=== PATIENT | female | born 1975 | race Caucasian/White ===

== ENCOUNTER 2024-07-09 06:12 | Inpatient (IN) | payer BC ==
[2024-07-07 09:34] LABS: COLOR,URINE YELLOW (YELLOW)
[2024-07-07 09:35] LABS: BILIRUBIN,URINE NEGATIVE (NEGATIVE); CLARITY,URINE CLOUDY (CLEAR); GLUCOSE, URINE NEGATIVE (NEGATIVE); KETONES,URINE NEGATIVE (NEGATIVE); LEUKOCYTE ESTERASE ,URINE NEGATIVE (NEGATIVE); NITRITE,URINE NEGATIVE (NEGATIVE); PH,URINE 6 (5 - 7); PROTEIN,URINE DIPSTICK NEGATIVE (NEGATIVE); URINE UROBILINOGEN 0.2 mg/dL (0.2 - 1)
[2024-07-07 09:55] LABS: BASOPHILS # (AUTO) 0.1 (0.0-0.1); EOSINOPHILS # (AUTO) 0.2 (0.0-0.4); EOSINOPHILS % 3.3 % (0.0-6.0); HEMATOCRIT 42.4 % (34.2-44.1); HEMOGLOBIN 13.5 g/dL (12.0-16.0); LYMPHOCYTES # (AUTO) 2.7 (1.0-3.2); LYMPHOCYTES % 39.3 % (18.0-39.1); MEAN CORPUSCULAR HEMOGLOBIN 30.1 pg (28-32); MEAN CORPUSCULAR HGB CONC 31.8 g/dL (31-35); MEAN CORPUSCULAR VOLUME 94.4 fL (81-99); MONOCYTES # (AUTO) 0.6 (0.2-0.8); MONOCYTES % 9.3 % (4.4-11.3); NEUTROPHILS # (AUTO) 3.2 (2.1-6.9); NEUTROPHILS % 46.8 % (38.7-80.0); PLATELET COUNT 254 x10e3/uL (140-360); RED BLOOD COUNT 4.49 x10e6/uL (3.6-5.1); RED CELL DISTRIBUTION WIDTH 13.2 % (11.7-14.4)
[~2024-07-09] VITALS: Ht 167.6 cm; Wt 70.3 kg
[~2024-07-09 06:12] MED LIST: IRON GUMMIES PO
[2024-07-09] MEDS: LACTATED RINGER'S 1,000 ML ONE (06:19)
[2024-07-09 08:05] LABS: HIV 1&2 AB SCREEN NON-REACTIVE (NONREACTIVE)
[2024-07-09] MEDS ORDERED: NALOXONE HCL INJ 0.4 MG/ML AMP IV PRN (10:45)
[2024-07-09] MEDS ORDERED: DIPHENHYDRAMINE HCL INJ 50 MG/ML VIAL IM PRN (10:45)
[2024-07-09] MEDS ORDERED: ZOLPIDEM TARTRATE 5 MG TAB PO PRN (10:45)
[2024-07-09] MEDS ORDERED: DIPHENHYDRAMINE HCL 25 MG CAP PO PRN (10:45)
[2024-07-09] MEDS ORDERED: DOCUSATE SODIUM 100 MG CAP PO PRN (10:45)
[2024-07-09] MEDS ORDERED: BISACODYL 5 MG TAB EC PO PRN (10:45)
[2024-07-09] MEDS: MEPERIDINE HCL INJ 25 MG/ML VIAL ONE (10:51)
[2024-07-09] MEDS: HYDROMORPHONE 0.2MG/ML-SOD CHL 30ML PCA SYRINGE IV PRN (11:04)
[2024-07-09 11:30] VITALS: BP 132/80; PULSE 67; RESP 18; TEMP 97.2; O2SAT 98
[2024-07-09] MEDS ORDERED: PHENYLEPHRINE HCL 1% 10 MG/ML VIAL ONE (12:11)
[2024-07-09] MEDS ORDERED: PROPOFOL IV EMULSION 10 MG/ML 20 ML VIAL ONE (12:14)
[2024-07-09] MEDS ORDERED: SUGAMMADEX SODIUM 200 MG/2 ML VIAL IV ONE (12:14)
[2024-07-09] MEDS ORDERED: SEVOFLURANE INHAL SOLN 250 ML PEN BTL ONE (12:14)
[2024-07-09] MEDS ORDERED: FAMOTIDINE 20 MG/2 ML VIAL IV ONE (12:14)
[2024-07-09] MEDS ORDERED: DEXAMETHASONE SOD PHOS INJ 4 MG/ML SDV ONE (12:14)
[2024-07-09] MEDS ORDERED: ACETAMINOPHEN 1000 MG/100 ML IV ONE (12:14)
[2024-07-09] MEDS ORDERED: LIDOCAINE HCL 2% LOCAL INJ 5 ML SDV VIAL INJ ONE (12:14)
[2024-07-09] MEDS ORDERED: ONDANSETRON HCL INJ 2MG/ML 2ML 2 MG/ML VIAL ONE (12:14)
[2024-07-09] MEDS: DEXTROSE 5%/LACTATED RINGERS 1,000 ML IV SCH (12:52)
[2024-07-09] MEDS: ONDANSETRON HCL INJ 2MG/ML 2ML 2 MG/ML VIAL IV PRN (12:52)
[2024-07-09 13:17] VITALS: PULSE 74; RESP 20; O2SAT 98
[2024-07-09] MEDS ORDERED: MIDAZOLAM HCL 2 MG/2 ML VIAL ONE (13:51)
[2024-07-09] MEDS ORDERED: FENTANYL CITRATE/PF 100MCG/2 ML INJ ONE (13:51)
[2024-07-09] MEDS: Cefoxitin 2 G in SODIUM CHLORIDE 0.9% 100 ML IV SCH (14:47)
[2024-07-09 16:42] LABS: HEPATITIS B SURFACE AG (P) Non Reactive; HEPATITIS C ANTIBODY Non Reactive
[2024-07-09 16:58] VITALS: BP 118/74; PULSE 79; RESP 18; TEMP 98.5; O2SAT 95
[2024-07-09 19:59] VITALS: PULSE 79; RESP 19; O2SAT 98
[2024-07-09 20:00] VITALS: BP 119/69; PULSE 76; RESP 18; TEMP 98.4; O2SAT 99
[2024-07-09 21:30] VITALS: BP 119/69; PULSE 76; RESP 18; TEMP 98.4; O2SAT 99
[2024-07-10] VITALS (10 sets, daily range): BP systolic 99–128; BP diastolic 60–82; PULSE 62–77; RESP 18–19; TEMP 98.2–99.1; O2SAT 94–100
[2024-07-10 07:01] LABS: BASOPHILS % 0.2 % (0.0-1.0); EOSINOPHILS # (AUTO) 0.1 (0.0-0.4); EOSINOPHILS % 0.4 % (0.0-6.0); HEMATOCRIT 33.1 % (34.2-44.1); HEMOGLOBIN 10.4 g/dL (12.0-16.0); LYMPHOCYTES % 25.8 % (18.0-39.1); MEAN CORPUSCULAR HEMOGLOBIN 30.3 pg (28-32); MEAN CORPUSCULAR HGB CONC 31.4 g/dL (31-35); MEAN CORPUSCULAR VOLUME 96.5 fL (81-99); MONOCYTES # (AUTO) 1.3 (0.2-0.8); MONOCYTES % 11.2 % (4.4-11.3); NEUTROPHILS # (AUTO) 7.2 (2.1-6.9); NEUTROPHILS % 62.1 % (38.7-80.0); PLATELET COUNT 210 x10e3/uL (140-360); RED BLOOD COUNT 3.43 x10e6/uL (3.6-5.1); RED CELL DISTRIBUTION WIDTH 13.4 % (11.7-14.4); WHITE BLOOD COUNT 11.61 x10e3/uL (4.8-10.8)
[2024-07-10 07:32] LABS: ANION GAP 9.7 mmol/L (8-16); CREATININE, SERUM 0.77 mg/dL (0.57-1.11); POTASSIUM 3.7 mmol/L (3.5-5.1)
[2024-07-10] MEDS ORDERED: HYDROCODONE/APAP 5MG-325MG TAB PO PRN ×2 (07:45)
[2024-07-10] MEDS: BUPIVACAINE LIPOSOME/PF 266 MG/20 ML IJ ONE (09:33)
[2024-07-10] MEDS: IBUPROFEN 400 MG TAB PO PRN (11:31)
[2024-07-10] MEDS: SIMETHICONE 80 MG CHEW PO PRN (16:56)
[2024-07-11] VITALS (7 sets, daily range): BP systolic 115–127; BP diastolic 68–88; PULSE 71–79; RESP 16–18; TEMP 98.8–100.5; O2SAT 96–100
[2024-07-11] MEDS: BISACODYL 10 MG SUPP PR ONE (17:13)
[2024-07-11] MEDS ORDERED: tylenol #3 PO (17:24)
[2024-07-11] MEDS ORDERED: motrin PO (17:25)
[2024-07-11] MEDS ORDERED: colace PO (17:26)
[2024-07-11] MEDS: KETOROLAC TROMETHAMINE 30 MG/ML VIAL IV PRN (17:44)
== END 2024-07-11 18:00 | disposition home or self-care (01) | DRG 742 ==
LOC: OR 06:12 → PACU V 10:43 → MED/SURG3 11:30
PROVIDERS: ADMIT Specialist; ATTEND Specialist
PROC: 0UB70ZZ Excision of Bilateral Fallopian Tubes, Open Approach (ICD-10-PCS; 2024-07-09)
PROC: 0UT90ZZ Resection of Uterus, Open Approach (ICD-10-PCS; principal; 2024-07-09 07:48)
DX: N93.9 Abnormal uterine and vaginal bleeding, unspecified (principal); D62 Acute posthemorrhagic anemia; D25.9 Leiomyoma of uterus, unspecified
CPT/HCPCS: 36415; 80048; 81003; 84702; 85025; 86850; 86900; 87390; 88307; 94799; G0433; G0435; J0694; J1100; J1885; J2001; J2175; J2250; J2371; J2405; J7050